=== PATIENT | female | born 1960 | race Caucasian/White ===

== ENCOUNTER 2017-02-03 19:13 | Emergency (ER) | payer BC, OTHER ==
[~2017-02-03] VITALS: Ht 174 cm; Wt 148.1 kg
[~2017-02-03 19:13] MED LIST: ALBU6.7H INH; ALT5C PO; APIX5TAB3 PO; BUTA1TAB54 PO; CALC-793 PO; CLIN-15 PO; CLIN-79 PO; CYCL-1 PO; FLUT16SP26 BOTHNARES; HYDR25TA4 PO; IMI20NS NS; LEVO200T8 PO; METF500T PO; MONT10TA24 PO; ONDA8TAB6 PO; PROM25TA14 PO
[2017-02-03 19:54] LABS: CLARITY,URINE Clear (Clear); COLOR,URINE Yellow (Yellow); GLUCOSE, URINE Negative (Neg); KETONES,URINE Negative (Neg); LEUKOCYTE ESTERASE ,URINE Trace (Neg); NITRITES, URINE Negative (Neg); OCCULT BLOOD,URINE Small (Neg); PH,URINE 5.5 (4.8-8.0); PROTEIN,URINE Negative (Neg)
[2017-02-03 20:00] LABS: UA COLLECTION TYPE VOIDED
[2017-02-03] MEDS ORDERED: ketorolac trometh inj. 60 MG/2 ML VIAL IM ONE (20:45)
[2017-02-03 21:57] LABS: CAL OXALATE CRYSTALS 1+ /HPF (NEGATIVE)
[2017-02-03 21:58] LABS: BACTERIA,URINE FEW /HPF (Neg); WBC,URINE 0-4 /HPF (0-4)
[2017-02-03 22:14] LABS: SQUAMOUS EPITHELIAL CELL,UR FEW /LPF (FEW)
[2017-02-03] MEDS ORDERED: FLO0.4C PO (22:50)
[2017-02-03] MEDS ORDERED: HYDR-3965 PO (22:50)
[2017-02-03] MEDS ORDERED: ONDA4TAB12 PO (22:50)
[2017-02-03 23:24] VITALS: BP 152/84
== END 2017-02-03 23:26 | disposition home or self-care (01) ==
LOC: ER 19:14
DX: N23 Unspecified renal colic (principal); E11.9 Type 2 diabetes mellitus without complications; J45.909 Unspecified asthma, uncomplicated; Z86.718 Personal history of other venous thrombosis and embolism; Z87.442 Personal history of urinary calculi; Z88.0 Allergy status to penicillin; Z91.018 Allergy to other foods; Z79.84 Long term (current) use of oral hypoglycemic drugs
CPT/HCPCS: 74176; 81001; 87088; 96372; 99285; J1885

== ENCOUNTER 2018-01-27 14:34 | Emergency (ER) | payer BC, OTHER ==
[~2018-01-27] VITALS: Ht 172.7 cm; Wt 148.0 kg
[~2018-01-27 14:34] MED LIST changes: -ALT5C PO; -CLIN-79 PO; +CLIN150C8 PO; +ONDA4TAB12 PO; +RAMI5CAP65 PO
[2018-01-27 14:44] VITALS: BP 171/83
[2018-01-27 15:22] LABS: URINE HCG NEGATIVE (NEG)
[2018-01-27] MEDS ORDERED: tamsulosin 0.4mg capsule PO ONE (15:25)
[2018-01-27] MEDS ORDERED: normal saline 1000ML IV soln IVB ONE (15:25)
[2018-01-27] MEDS ORDERED: ondansetron/PF 4mg/2ml inj IV ONE (15:25)
[2018-01-27] MEDS ORDERED: morphine 4 MG/ML inj SYRINge IV ONE (15:25)
[2018-01-27 15:28] LABS: CLARITY,URINE CLEAR (Clear); COLOR,URINE YELLOW (Yellow); GLUCOSE, URINE NEGATIVE (Neg); KETONES,URINE NEGATIVE (Neg); LEUKOCYTE ESTERASE ,URINE NEGATIVE (Neg); NITRITES, URINE NEGATIVE (Neg); OCCULT BLOOD,URINE LARGE (Neg); PH,URINE 5.5 (4.8-8.0); PROTEIN,URINE NEGATIVE (Neg); UA COLLECTION TYPE CLN CATCH MIDSTREAM; UROBILINOGEN,URINE 0.2 E.U/dL (0.2-1.0)
[2018-01-27 15:38] LABS: RBC,URINE 50-100 /HPF (0-2); WBC,URINE 0-4 /HPF (0-4)
[2018-01-27 15:39] LABS: BACTERIA,URINE FEW /HPF (Neg); MUCUS STRANDS FEW /LPF (Neg); SQUAMOUS EPITHELIAL CELL,UR FEW /LPF (FEW)
[2018-01-27 15:46] LABS: BASOPHILS % (AUTO) 0.4 % (0-1); EOSINOPHILS # (AUTO) 0.1 X10'3 (0-0.9); EOSINOPHILS % (AUTO) 1.3 % (0-6); HEMOGLOBIN 13.1 g/dl (12.0-16.0); LYMPHOCYTES # (AUTO) 1.2 X10'3 (1.1-4.8); LYMPHOCYTES % (AUTO) 22.6 % (21-51); MEAN CORPUSCULAR HEMOGLOBIN 27.1 PG (27.0-31.0); MEAN CORPUSCULAR HGB CONC 32.8 % (33.0-36.5); MEAN CORPUSCULAR VOLUME 82.5 FL (78-98); MEAN PLATELET VOLUME 7.5 FL (7.4-10.4); MONOCYTES # (AUTO) 0.6 X10'3 (0-0.9); MONOCYTES % (AUTO) 10.4 % (2-12); NEUTROPHILS # (AUTO) 3.6 X10'3 (1.8-7.7); NEUTROPHILS % (AUTO) 65.3 % (42-75); PLATELET COUNT 294 X10'3 (140-440); RED BLOOD COUNT 4.85 X10'6 (4.20-5.60); RED CELL DISTRIBUTION WIDTH 14.7 % (11.5-14.5); WHITE BLOOD COUNT 5.5 X10'3 (4.5-11.0)
[2018-01-27 16:02] LABS: ALANINE AMINOTRANSFERASE 49 U/L (12-78); ALBUMIN 3.2 G/DL (3.4-5.0); ALBUMIN/GLOBULIN RATIO 0.9 (1.1-1.5); ALKALINE PHOSPHATASE 72 IU/L (46-116); ANION GAP 11 (8-16); ASPARTATE AMINO TRANSFERASE 40 U/L (10-37); BILIRUBIN,TOTAL 0.3 MG/DL (0.1-1.0); BLOOD UREA NITROGEN 16 MG/DL (7-18); BUN/CREATININE RATIO 14.7 (6.6-38.0); CALCIUM 9.7 MG/DL (8.5-10.1); CHLORIDE 105 MMOL/L (99-107); CREATININE 1.09 MG/DL (0.40-0.90); GLUCOSE 152 MG/DL (70-104); SODIUM 141 MMOL/L (135-145); TOTAL CARBON DIOXIDE 25.3 MMOL/L (24-32); TOTAL PROTEIN 6.8 G/DL (6.4-8.2); eGFR 52 ML/MIN
[2018-01-27] MEDS ORDERED: FLO0.4C PO (16:32)
[2018-01-27] MEDS ORDERED: HYDR-4353 PO (16:32)
[2018-01-27] MEDS ORDERED: NAPR-56 PO (16:32)
== END 2018-01-27 16:48 | disposition home or self-care (01) ==
LOC: ER 14:34
DX: N20.0 Calculus of kidney (principal); J45.909 Unspecified asthma, uncomplicated; E11.9 Type 2 diabetes mellitus without complications; Z86.718 Personal history of other venous thrombosis and embolism; Z98.890 Other specified postprocedural states; Z88.0 Allergy status to penicillin; Z91.030 Bee allergy status; Z91.018 Allergy to other foods; Z79.01 Long term (current) use of anticoagulants; Z79.2 Long term (current) use of antibiotics; Z79.899 Other long term (current) drug therapy
CPT/HCPCS: 36415; 74176; 80053; 81001; 81025; 85025; 96374; 96375; 99284; J2270; J2405; J7030

== ENCOUNTER 2018-01-31 18:18 | Inpatient (IN) | payer BC, OTHER ==
[~2018-01-31] VITALS: Ht 172.7 cm; Wt 150.2 kg
[~2018-01-31 18:18] MED LIST changes: +FLO0.4C PO; +HYDR-4353 PO; +NAPR-56 PO; +sevoflurane 250ml liquid IH ONE
[2018-01-31 20:00] LABS: BASOPHILS % (AUTO) 0.3 % (0-1); EOSINOPHILS # (AUTO) 0.1 X10'3 (0-0.9); EOSINOPHILS % (AUTO) 1.3 % (0-6); HEMATOCRIT 44.3 % (35.0-45.0); HEMOGLOBIN 14.6 g/dl (12.0-16.0); LYMPHOCYTES # (AUTO) 1.1 X10'3 (1.1-4.8); LYMPHOCYTES % (AUTO) 15.8 % (21-51); MEAN CORPUSCULAR HEMOGLOBIN 27.1 PG (27.0-31.0); MEAN PLATELET VOLUME 8.2 FL (7.4-10.4); MONOCYTES # (AUTO) 0.5 X10'3 (0-0.9); MONOCYTES % (AUTO) 6.8 % (2-12); NEUTROPHILS # (AUTO) 5.1 X10'3 (1.8-7.7); NEUTROPHILS % (AUTO) 75.8 % (42-75); PLATELET COUNT 326 X10'3 (140-440); RED CELL DISTRIBUTION WIDTH 14.2 % (11.5-14.5); WHITE BLOOD COUNT 6.7 X10'3 (4.5-11.0)
[2018-01-31 20:09] LABS: PROTHROMBIN TIME 9.7 SECONDS (9.0-12.0)
[2018-01-31 20:11] LABS: ALANINE AMINOTRANSFERASE 66 U/L (12-78); ALBUMIN 3.9 G/DL (3.4-5.0); ALBUMIN/GLOBULIN RATIO 0.9 (1.1-1.5); ALKALINE PHOSPHATASE 74 IU/L (46-116); ANION GAP 11 (8-16); ASPARTATE AMINO TRANSFERASE 58 U/L (10-37); BILIRUBIN,TOTAL 0.3 MG/DL (0.1-1.0); BLOOD UREA NITROGEN 20 MG/DL (7-18); BUN/CREATININE RATIO 18.3 (6.6-38.0); CALCIUM 10.3 MG/DL (8.5-10.1); CHLORIDE 103 MMOL/L (99-107); CREATININE 1.09 MG/DL (0.40-0.90); GLUCOSE 133 MG/DL (70-104); POTASSIUM 4.3 MMOL/L (3.5-5.1); SODIUM 140 MMOL/L (135-145); TOTAL CARBON DIOXIDE 26.3 MMOL/L (24-32); TOTAL PROTEIN 8.1 G/DL (6.4-8.2); eGFR 52 ML/MIN
[2018-01-31] MEDS ORDERED: ondansetron/PF 4mg/2ml inj IV ONE (20:40)
[2018-01-31] MEDS ORDERED: ketorolac tromethamine 15mg/ml inj. IV ONE (20:40)
[2018-01-31 20:48] LABS: CLARITY,URINE CLEAR (Clear); COLOR,URINE YELLOW (Yellow); GLUCOSE, URINE NEGATIVE (Neg); KETONES,URINE NEGATIVE (Neg); LEUKOCYTE ESTERASE ,URINE NEGATIVE (Neg); NITRITES, URINE NEGATIVE (Neg); OCCULT BLOOD,URINE LARGE (Neg); PH,URINE 5.5 (4.8-8.0); PROTEIN,URINE TRACE mg/dl (Neg); UROBILINOGEN,URINE 0.2 E.U/dL (0.2-1.0)
[2018-01-31 20:53] LABS: URINE HCG NEGATIVE (NEG)
[2018-01-31] MEDS ORDERED: CARDIAC IV ONE (20:55)
[2018-01-31] MEDS ORDERED: LIDOCAINE 2% IV ONE (20:55)
[2018-01-31] MEDS ORDERED: NORMAL SALINE IV ONE (20:55)
[2018-01-31 21:00] LABS: UA COLLECTION TYPE CLN CATCH MIDSTREAM
[2018-01-31] MEDS ORDERED: temazepam 15mg capsule PO PRN (21:00)
[2018-01-31 21:10] LABS: BACTERIA,URINE FEW /HPF (Neg); RBC,URINE TNTC /HPF (0-2); SQUAMOUS EPITHELIAL CELL,UR MODERATE /LPF (FEW); WBC,URINE 0-4 /HPF (0-4)
[2018-01-31] MEDS ORDERED: cyclobenzaprine 10mg tablet PO PRN (22:15)
[2018-01-31] MEDS ORDERED: butalbital/acetaminophen/caffeine (Fioricet) tablet PO PRN (22:15)
[2018-01-31] MEDS ORDERED: metoclopramide 5 mg/ml inj IV PRN (22:20)
[2018-01-31] MEDS ORDERED: acetaminophen 650mg rectal suppository RC PRN (22:20)
[2018-01-31] MEDS ORDERED: acetaminophen 325mg tablet PO PRN ×2 (22:20)
[2018-01-31] MEDS ORDERED: glucagon, human recombinant 1mg kit SUBCUT PRN (22:20)
[2018-01-31] MEDS ORDERED: morphine 4 MG/ML inj SYRINge IV PRN (22:20)
[2018-01-31] MEDS ORDERED: dextrose 50%-water 50ml dispensing syringe IV PRN ×2 (22:20)
[2018-01-31] MEDS ORDERED: diphenhydrAMINE 50 mg/ml inj IV PRN (22:20)
[2018-01-31] MEDS ORDERED: dextrose ORAL solution 15 GM/59 ML bottle PO PRN ×2 (22:20)
[2018-01-31] MEDS ORDERED: mag hydrox/Alum hydrox/simeth 30ml oral suspension PO PRN (22:20)
[2018-01-31] MEDS ORDERED: insulin Lispro (HumaLOG) vial - multi-dose SQ SCH (22:20)
[2018-01-31] MEDS ORDERED: magnesium hydroxide 30ml (MOM) UD suspension PO PRN (22:20)
[2018-01-31] MEDS ORDERED: MESSAGE TO PHARMACY PO ONE (22:20)
[2018-01-31] MEDS ORDERED: bisacodyl 10mg suppository rectal RC PRN (22:20)
[2018-01-31] MEDS ORDERED: diphenhydrAMINE 25mg capsule PO PRN (22:20)
[2018-01-31 22:49] LABS: PARTIAL THROMBOPLASTIN TIME 29 SECONDS (22-32)
[2018-01-31 22:58] LABS: HEMOGLOBIN A1C 6.7 % (4.5-6.2)
[2018-01-31 23:07] LABS: CREATINE KINASE 73 U/L (26-192); LIPASE 94 U/L (73-393); MAGNESIUM 1.5 MG/DL (1.5-2.4); PHOSPHORUS 2.9 MG/DL (2.3-4.5)
[2018-01-31] MEDS: HYDROmorphone 1 mg/ml syringe IV PRN (23:37)
[2018-01-31] MEDS: normal saline 1000ml 1,000 ML IV SCH (23:38)
[2018-02-01] VITALS (8 sets, daily range): BP systolic 120–170; BP diastolic 74–85
[2018-02-01] MEDS: HYDROcodone/acetaminophen 10/325mg tab PO PRN ×3 (01:23→12:14)
[2018-02-01] MEDS ORDERED: pneumococcal 23-VAL P-sac vacc 25 mcg/0.5ml vial IMVAC ONE ×2 (01:25→10:00)
[2018-02-01] MEDS: HYDROmorphone 1 mg/ml syringe IV PRN ×3 (03:56→15:01)
[2018-02-01 04:52] LABS: BASOPHILS % (AUTO) 0.4 % (0-1); EOSINOPHILS # (AUTO) 0.1 X10'3 (0-0.9); EOSINOPHILS % (AUTO) 1.5 % (0-6); HEMATOCRIT 36.6 % (35.0-45.0); HEMOGLOBIN 12.1 g/dl (12.0-16.0); LYMPHOCYTES # (AUTO) 1.8 X10'3 (1.1-4.8); LYMPHOCYTES % (AUTO) 33.5 % (21-51); MEAN CORPUSCULAR HEMOGLOBIN 27.2 PG (27.0-31.0); MEAN CORPUSCULAR HGB CONC 33.1 % (33.0-36.5); MEAN CORPUSCULAR VOLUME 82.4 FL (78-98); MEAN PLATELET VOLUME 7.7 FL (7.4-10.4); MONOCYTES # (AUTO) 0.6 X10'3 (0-0.9); MONOCYTES % (AUTO) 11.4 % (2-12); NEUTROPHILS # (AUTO) 2.8 X10'3 (1.8-7.7); NEUTROPHILS % (AUTO) 53.2 % (42-75); PLATELET COUNT 288 X10'3 (140-440); RED BLOOD COUNT 4.45 X10'6 (4.20-5.60); RED CELL DISTRIBUTION WIDTH 14.5 % (11.5-14.5); WHITE BLOOD COUNT 5.3 X10'3 (4.5-11.0)
[2018-02-01 05:21] LABS: ALANINE AMINOTRANSFERASE 50 U/L (12-78); ALBUMIN/GLOBULIN RATIO 0.9 (1.1-1.5); ALKALINE PHOSPHATASE 63 IU/L (46-116); ANION GAP 11 (8-16); ASPARTATE AMINO TRANSFERASE 39 U/L (10-37); BILIRUBIN,TOTAL 0.3 MG/DL (0.1-1.0); BLOOD UREA NITROGEN 19 MG/DL (7-18); BUN/CREATININE RATIO 20.7 (6.6-38.0); CALCIUM 9.3 MG/DL (8.5-10.1); CHLORIDE 106 MMOL/L (99-107); CREATININE 0.92 MG/DL (0.40-0.90); GLUCOSE 116 MG/DL (70-104); POTASSIUM 3.9 MMOL/L (3.5-5.1); SODIUM 142 MMOL/L (135-145); TOTAL CARBON DIOXIDE 25.2 MMOL/L (24-32); TOTAL PROTEIN 6.2 G/DL (6.4-8.2); eGFR 63 ML/MIN
[2018-02-01] MEDS: ondansetron/PF 4mg/2ml inj IV PRN ×2 (05:25→12:14)
--- NOTE | 2018-02-01 06:10 | NUR ---
Patient in room [facility]. I have received report from Brittaney GARCIA and had the opportunity to ask questions and assume patient care. Patient in bed resting
--- NOTE | 2018-02-01 06:25 | NUR ---
Problems reprioritized. Patient report given, questions answered & plan of care reviewed with Linda GARCIA.
[2018-02-01] MEDS: albuterol 2.5 MG/3 ML nebule NEB SCH ×2 (07:10→11:00)
[2018-02-01] MEDS ORDERED: ketorolac trometh. 30mg/ml inj. IV PRN (07:20)
[2018-02-01] MEDS ORDERED: levoTHYROXINE 100mcg tablet PO SCH (08:00)
[2018-02-01] MEDS ORDERED: lisinopril 20mg tablet PO SCH (08:00)
[2018-02-01] MEDS ORDERED: tamsulosin 0.4mg capsule PO SCH (08:00)
[2018-02-01] MEDS ORDERED: pantoprazole 40 MG vial IV SCH (08:00)
[2018-02-01] MEDS: normal saline 1000ml 1,000 ML IV SCH ×2 (09:04→18:18)
[2018-02-01] MEDS: docusate sod 100mg capsule PO SCH ×2 (09:06→20:12)
[2018-02-01 10:24] LABS: ALANINE AMINOTRANSFERASE 56 U/L (12-78); ALBUMIN 3.2 G/DL (3.4-5.0); ALKALINE PHOSPHATASE 66 IU/L (46-116); ANION GAP 11 (8-16); ASPARTATE AMINO TRANSFERASE 48 U/L (10-37); BILIRUBIN,TOTAL 0.4 MG/DL (0.1-1.0); BLOOD UREA NITROGEN 19 MG/DL (7-18); BUN/CREATININE RATIO 18.8 (6.6-38.0); CALCIUM 9.2 MG/DL (8.5-10.1); CHLORIDE 105 MMOL/L (99-107); CREATININE 1.01 MG/DL (0.40-0.90); GLUCOSE 132 MG/DL (70-104); POTASSIUM 3.9 MMOL/L (3.5-5.1); SODIUM 141 MMOL/L (135-145); TOTAL CARBON DIOXIDE 25.2 MMOL/L (24-32); TOTAL PROTEIN 6.5 G/DL (6.4-8.2); eGFR 57 ML/MIN
--- NOTE | 2018-02-01 15:15 | NUR ---
I gave report to [facility] they called to let me know they are picking up my patient to get ready for Dr. Nazario in OR. Patient is ready for transfer.
--- NOTE | 2018-02-01 15:52 | NUR ---
I called recovery to give report to Willian GARCIA. He received report from OR.
[2018-02-01] MEDS ORDERED: fentaNYL/PF 50MCG/1 ML 2ML syringe ONE (16:03)
[2018-02-01] MEDS ORDERED: midazolam 2 mg/2 ml injection ONE (16:04)
[2018-02-01] MEDS ORDERED: propofol inj 20 ML IV ONE (16:04)
[2018-02-01] MEDS ORDERED: LIDOcaine 2% (20mg/ml) 5ml vial ONE (16:04)
[2018-02-01] MEDS ORDERED: ondansetron/PF 4mg/2ml inj ONE (16:11)
[2018-02-01] MEDS ORDERED: levoFLOXACIN-Levaquin 500mg/D5 100 ML IV ONE (16:11)
--- NOTE | 2018-02-01 16:45 | NUR ---
Received from OR via BED , accompanied by Anesthesiologist DR GARCIA and report given by Anesthesiolgist. PATIENT A&OX4, MOMO PAIN, V/S WNL, NEUROVASCULAR CHECKS INTACT, 20G RUE, SCD ON, BG 121.
--- NOTE | 2018-02-01 17:15 | NUR ---
PATIENT A&OX4, MOMO PAIN, V/S WNL, NEUROVASCULAR CHECKS INTACT, 20G RUE, SCD ON, BG 121. PATIENT RETURNED TO [facility] WITH ALL BELONGINGS AND HOOKED UP TO MONITORS IN ROOM AND REPORT GIVEN TO BIN TRIPPER OPERATOR WHO HAS TAKEN OVER PATIENT CARE.
--- NOTE | 2018-02-01 17:15 | NUR ---
Received call from Dandy in OR patient stable, Alert. He has returned patient to 347 A. Patient is getting post op vitals.
--- NOTE | 2018-02-01 17:39 | NUR ---
Malnutrition/DM consults: A1C <7. Pt has normal strength, no wt loss hx, no edema, BMI 50. Does not qualify for malnutrition at this time. Addendum: 02/01/18 at [address] Amended: Links added.
--- NOTE | 2018-02-01 18:23 | NUR ---
Problems reprioritized. Patient report given, Jenae GARCIA questions answered & plan of care reviewed with . Patient in bed getting post op vitals
--- NOTE | 2018-02-01 19:05 | NUR ---
Patient in room [facility]. I have received report from Linda GARCIA and had the opportunity to ask questions and assume patient care.
--- NOTE | 2018-02-01 19:44 | NUR ---
Pt upset taking off all her Tele pads and SCDs. Stated to Charge nurse "take this IV out I'm leaving and I know how to take it out if you don't". Pt upset that she was told she was going to be discharged 2hrs ago, up set with room mate situation. Charge was able to calm pt down, and removed her from the room situation into a chair as her request in a different room. It was explained that retail shift leader just got on shift and we will be doing the best we can to get her out of here safetly with antibiotics as Dr. Weiss requested. Primary nurse Calling Dr. Weiss as Day shift was unable to finalize d/c home with antibiotics with day hospitalist. Addendum: 02/01/18 at 1949 by Nora Hernandez RN Amended: Links added.
--- NOTE | 2018-02-01 20:20 | NUR ---
Pt content at this time sitting in chair in a different room, drinking water, denies food offered, call light in place, awaiting for her ride. Pts demeanor has changed since room change. Charge nurse informed pt that Dr. Nazario was reached d/c orders done. Pt is aware that she needs to p/u her PO antibiotics Cipro 250mg PO BID, Pt understands how to take the medication and that she is to f/u with Dr. Nazario in 1 week as they will call, Pt is awaiting ride.
[2018-02-01] MEDS ORDERED: CIPROFLOXACIN PO (20:27)
--- NOTE | 2018-02-01 20:30 | NUR ---
Pt was very discontent with her roommate and the amount of disruptive activities, such as, dialysis that were happening in the room. Roommate had very inconsiderate family in the room as well. We were currently awaiting a return call from the hospitalist to do discharge paperwork, but pt stated that she was going to go AMA and started to remove her SCD's and tele pads. The charge nurse assisted in moving her to another room and making her comfortable. I contacted the surgeon, Dr. Nazario, and got orders for oral antibiotics and discharge orders. Cipro 250mg 1 PO BID time 1 week was called into [facility]. The charge nurse completed discharge paperwork, which was signed by the patient, copies were given and when patient's family arrived she was taken downstairs by wheelchair.
== END 2018-02-01 20:55 | disposition home or self-care (01) | DRG 660 ==
LOC: ER 18:19 → ED HOLD 22:18 → SUR 3N 23:00
PROVIDERS: ADMIT Family Medicine; ATTEND Urology
PROC: BT171ZZ Fluoroscopy of Left Ureter using Low Osmolar Contrast (ICD-10-PCS; 2018-02-01)
PROC: 3E0234Z Introduction of Serum, Toxoid and Vaccine into Muscle, Percutaneous Approach (ICD-10-PCS; 2018-02-01)
PROC: 0T778DZ Dilation of Left Ureter with Intraluminal Device, Via Natural or Artificial Opening Endoscopic (ICD-10-PCS; principal; 2018-02-01 15:55)
DX: N13.2 Hydronephrosis with renal and ureteral calculous obstruction (principal); Z68.43 Body mass index [BMI] 50.0-59.9, adult; E11.65 Type 2 diabetes mellitus with hyperglycemia; N17.9 Acute kidney failure, unspecified; I10 Essential (primary) hypertension; E66.01 Morbid (severe) obesity due to excess calories; J45.909 Unspecified asthma, uncomplicated; Z23 Encounter for immunization; Z88.0 Allergy status to penicillin; Z91.030 Bee allergy status; Z91.018 Allergy to other foods; Z86.718 Personal history of other venous thrombosis and embolism; Z79.899 Other long term (current) drug therapy
CPT/HCPCS: 96374; 96375; 99285; Z7506; 36415; 76000; 80053; 81001; 81025; 82550; 82948; 83036; 83690; 83735; 83880; 84100; 84443; 85025; 85610; 85730; 87070; 90732; 93005; A4402; C1758; C1769; C2617; C9113; G0378; J1170; J1885; J1956; J2001; J2250; J2405; J2704; J3010; J7030

== ENCOUNTER 2021-03-10 17:19 | Emergency (ER) | payer BC ==
[~2021-03-10] VITALS: Ht 175.3 cm; Wt 155.2 kg
[~2021-03-10 17:19] MED LIST changes: -ALBU6.7H INH; +ALBU6.7H9 INH; -APIX5TAB3 PO; -CALC-793 PO; +CIPROFLOXACIN PO; -CLIN-15 PO; -CLIN150C8 PO; -FLO0.4C PO; -FLUT16SP26 BOTHNARES; -HYDR-4353 PO; -MONT10TA24 PO; -NAPR-56 PO; -sevoflurane 250ml liquid IH ONE
[2021-03-10 17:31] VITALS: BP 152/77
== END 2021-03-10 19:05 | disposition home or self-care (01) ==
LOC: ER 17:19
DX: S60.221A Contusion of right hand, initial encounter (principal); J45.909 Unspecified asthma, uncomplicated; E11.9 Type 2 diabetes mellitus without complications; Z87.442 Personal history of urinary calculi; Z86.718 Personal history of other venous thrombosis and embolism; Z86.19 Personal history of other infectious and parasitic diseases; Z88.0 Allergy status to penicillin; Z91.030 Bee allergy status; Z91.018 Allergy to other foods; Z79.2 Long term (current) use of antibiotics; Z79.899 Other long term (current) drug therapy; W20.8XXA Other cause of strike by thrown, projected or falling object, initial encounter; Y93.01 Activity, walking, marching and hiking; Y92.89 Other specified places as the place of occurrence of the external cause; Y99.8 Other external cause status
CPT/HCPCS: 73130; 99283

== ENCOUNTER 2022-09-28 07:07 | Emergency (ER) | payer BC, OTHER ==
[~2022-09-28] VITALS: Ht 172.7 cm; Wt 160.0 kg
[~2022-09-28 07:07] MED LIST changes: +ALBU6.7H14 INH; -ALBU6.7H9 INH
[2022-09-28 07:12] VITALS: TEMP 97.8
[2022-09-28] MEDS ORDERED: ketorolac trometh inj. 60 MG/2 ML VIAL IM ONE (07:35)
[2022-09-28 08:14] VITALS: BP 145/80; PULSE 74; O2SAT 95
[2022-09-28 08:19] VITALS: RESP 18
== END 2022-09-28 09:11 | disposition home or self-care (01) ==
LOC: ER 07:08
DX: I80.02 Phlebitis and thrombophlebitis of superficial vessels of left lower extremity (principal); J45.909 Unspecified asthma, uncomplicated; E11.9 Type 2 diabetes mellitus without complications; Z87.442 Personal history of urinary calculi; Z88.0 Allergy status to penicillin; Z91.030 Bee allergy status; Z91.018 Allergy to other foods; Z79.899 Other long term (current) drug therapy
CPT/HCPCS: 93971; 96372; 99285; J1885

== ENCOUNTER 2023-01-28 00:30 | Emergency (ER) | payer OTHER ==
[~2023-01-28] VITALS: Ht 174 cm; Wt 150.5 kg
[2023-01-28 00:32] VITALS: BP 159/98; PULSE 85; RESP 18; O2SAT 95
== END 2023-01-28 03:59 | disposition left against medical advice (07) ==
LOC: ER 00:30
DX: R22.42 Localized swelling, mass and lump, left lower limb (principal); Z53.21 Procedure and treatment not carried out due to patient leaving prior to being seen by health care provider
CPT/HCPCS: 99281